=== PATIENT | female | born 2000 | race Caucasian/White ===

== ENCOUNTER 2024-03-22 14:20 | Inpatient (IN) | payer OTHER, SELFPAY ==
--- NOTE | ~2024-03-22 | XR_ITS ---
EXAMINATION: XR chest 1V portable 03/23/2024 08:38 INDICATION: Covid infection PROCEDURE: AP portable chest COMPARISON: No prior studies for comparison. FINDINGS: The lungs are clear. The cardiomediastinal silhouette is within normal limits. There are no pleural effusions. There is no pneumothorax suspected. IMPRESSION: 1: NO ACUTE CARDIOPULMONARY DISEASE. Reviewed, dictated and finalized at location B. [facility]
[2024-03-22 14:25] VITALS: BP 90/61; PULSE 124; RESP 24; TEMP 36.6; O2SAT 99
[2024-03-22 14:29] LABS: Glucose Point of Care > 500 mg/dl (65-105)
[2024-03-22 14:39] LABS: Fractional Inspired Oxygen 21 %; HCO3 VBG 15.1 mEq/l (24.0-30.0); pH VBG 7.361 (7.300-7.400)
[2024-03-22] MEDS: ONDANSETRON INJ 4 MG/2 ML VIAL IV PUSH (14:40)
[2024-03-22] MEDS: LACTATED RINGERS 1,000 ML 999 ML IV CONT ×3 (14:40→15:49)
[2024-03-22 14:41] LABS: PCO2 VBG 27.2 mmHg (42.0-48.0)
[2024-03-22 14:45] LABS: Basophils Absolute Auto 0.1 K/mm3 (0.0-0.1); Basophils Percent Auto 0.9 % (0.2-1.2); Eosinophils Absolute Auto 0.1 K/mm3 (0-0.3); Eosinophils Percent Auto 0.5 % (0-4.4); Hematocrit 43.5 % (37.0-47.0); Hemoglobin 14.4 g/dL (12.0-15.0); Immature Granulocyte Absolute 0.04 K/mm3 (0.00-0.031); Immature Granulocyte Percent A 0.4 % (0-0.5); Lymphocytes Absolute Auto 2.16 K/mm3 (0.9-3.2); Lymphocytes Percent Auto 20.5 % (18.3-44.2); Mean Corpuscular HGB Conc 33.1 g/dl (32-36); Mean Corpuscular Hemoglobin 29.5 pg (26-34); Mean Corpuscular Volume 89.1 fl (80-100); Mean Platelet Volume 11.5 fl (7.4-10.4); Monocytes Absolute Auto 0.3 K/mm3 (0.1-0.6); Monocytes Percent Auto 2.4 % (2.6-8.5); Neutrophils Percent Auto 75.3 % (45.5-73.1); Platelet Count Result 323 k/mm3 (150-375); Red Blood Count 4.88 M/mm3 (4.2-5.4); White Blood Count 10.5 K/mm3 (4.5-10.0)
--- NOTE | 2024-03-22 14:57 | ED_ITS ---
HPI - Recheck/Abnormal Lab/Rx General Chief Complaint: Recheck/Abnormal Lab/Rx Stated Complaint: high blood sugar, T1DM Time Seen by Provider: 03/22/24 14:30 History of Present Illness HPI narrative: 23-year-old female with a past medical history including type 1 insulin- dependent diabetes on insulin pump. She has had previous admissions for diabetic ketoacidosis in the past. She states she was otherwise in her normal state of health yesterday but woke up with profound nausea and vomiting, check her blood sugars never reading high above 600. She states she feels very similar to the last time she was in DKA over a year ago. She has been using her insulin pump and does not have any other did antidiabetic medications or insulin injections. She states that she has not been using her Dexcom a tractor sugars however. Denies any fever, chills, headache, vision changes, chest pain, shortness a breath, abdominal pain or symptoms. Her insulin pump is currently on in her left lower quadrant of the abdomen. Denies any trauma or other recent injuries, but does inform me that she got over pneumonia several weeks ago after a short course of antibiotics. Related Data Home Medications ?Medication ?Instructions ?Recorded ?Confirmed ?Last Taken ?Type insulin aspart U-100 100 unit/mL 1 sliding scale dose subcut 03/22/24 03/22/24 03/22/24 History subcutaneous cartridge (Novolog USEASDIRECTD PenFill U-100 Insulin aspart) Allergies Allergy/AdvReac Type Severity Reaction Status Date / Time amoxicillin Allergy Intermediate Hives Verified 03/22/24 14:42 clavulanic acid (From Allergy Intermediate Hives Verified 03/22/24 14:42 Augmentin) metoclopramide (From Reglan) Allergy Intermediate tremors Verified 03/22/24 14:42 Review of Systems 2 Review of Systems: As reviewed above in HPI [facility] Family History Family History (Updated 03/22/24 @ 18:27 by Geri Montalvo RN) Father Prostate carcinoma Social History Social History Smoking status: Never smoker Alcohol intake: current Drinks per week: 2 Substance use: never Substance use type: does not use Do You Feel Safe in your Home?: Yes Lack of Transportation: No Lack of Food: Never True Current Housing: I Do Not Have Housing Concerned About Future Housing: No Difficulty Paying Gas/Electric Bills: No Difficulty Paying for Meds: No Currently Unemployed: No Education: High School Diploma/GED Difficulty w/ Childcare or Family Care: No Spiritual care concerns: No Exam 2 Narrative: GENERAL: Ill-appearing, tachypneic, and having mild respiratory distress with deep breathing HEAD: [Normocephalic, atraumatic.] EYES: [PERRLA and EOMI.] ENT: Nares clear, no rhinorrhea or epistaxis. Mucous membranes dry with very tacky lips and tongue. NECK: Supple. CHEST: Clear to auscultation, mild distress with deep breathing and tachypnea noted, clear without any wheezing, rhonchi or rales. HEART: [Regular rate and rhythm]. No murmur heard. [Normal peripheral pulses.] ABDOMEN: [Soft, nondistended], [nontender], [No rigidity or guarding] EXTREMITIES: Normal range of motion. [No edema.] SKIN: Warm, dry, no rash. left lower quadrant insulin pump, removed at bedside, no bleeding or erythema, tenderness or any overlying skin changes this area. NEURO: [No focal deficits]. Alert and oriented [x3.] PSYCH: [Normal mood and affect.] Course Vital Signs Vital signs: Vital Signs Temperature 36.6 C 03/22/24 14:25 Pulse Rate 124 H 03/22/24 14:25 Respiratory Rate 24 H 03/22/24 14:25 Blood Pressure 90/61 L 03/22/24 14:25 Pulse Oximetry 99 03/22/24 14:25 Oxygen Delivery Room Air 03/22/24 14:25 Temperature 36.6 C 03/22/24 14:25 Pulse Rate 107 H 03/22/24 18:16 Respiratory Rate 24 H 03/22/24 17:22 Blood Pressure 116/62 03/22/24 18:16 Pulse Oximetry 100 03/22/24 17:19 Oxygen Delivery Room Air 03/22/24 14:25 MDM - Recheck/Abnormal Lab/Rx MDM Narrative Medical decision making narrative: 23-year-old female with a past medical history including type 1 insulin- dependent diabetes using insulin pump. She has had previous admissions to various hospitals for diabetic ketoacidosis most recently last year. She recently had pneumonia that was treated with outpatient antibiotics with recovery of her symptoms. Denies any respiratory complaints at this time but does have tachypnea and tachycardia here, does appear ill with deep breathing. Her blood sugar read high in triage. Concern presently is for recurrence of diabetic ketoacidosis versus HHS versus nonketotic hyperglycemia causing dehydration. Suspicion that her insulin pump could be the culprit as that is what caused her last DKA admission with malfunction. Patient has not been tracking her sugars with her Dexcom at home. The area of her insulin pump does not appear inflamed or infected, the insulin pump was removed while protocol for DKA was initiated. She was given 2 L of lactated Ringer's, Zofran for nausea, chest x-ray, EKG, urinalysis and laboratory studies were obtained including a VBG and beta hydroxybutyrate. COVID fluid RSV swabs also obtained. Initial blood pressure soft with a systolic and 90/61, pulse 124 tachypneic rate of 24. She is saturating well on room air and afebrile. Will re-evaluate and placed on continuous pulse oximetry and media monitor. She is given so far 2 L of LR and will be re-evaluated after this. Workup shows no significant leukocytosis at 10.5, normal hemoglobin, normal platelet count. VBG shows pCO2 of 27.2, bicarb 15.1 and a compensated pH is 7.36 indicative of an acute metabolic acidosis with compensated respiratory drive. Electrolyte panel shows a potassium 4.8, anion gap elevated acidosis with an anion gap of 22 and a bicarb of 13. Glucose of 535. Beta hydroxybutyrate elevated 7.51. Urinalysis with signs of urinary tract infection, COVID positive test. Patient was provided additional L of fluid and started on high-dose maintenance infusion with potassium supplementation while we initiate insulin therapy. She was given a 0.1 unit/kilogram dose of insulin infusion and started on Rocephin for the urinary tract infection. Patient was re-evaluated and felt improved and was no longer S tachycardic or tachypneic. Blood pressure also improved fluid resuscitation. Blood pressure 116/62, pulse 107. I informed the patient and the family at bedside the findings including the COVID test, urinary infection and her signs and her diagnosis of DKA and need for ICU admission. I spoke to the auto transmission specialist Dr. Prajapati over the phone and we went over patient's clinical exam, electrolyte panel, diagnosis of DKA and current treatment interventions and next steps. Patient was accepted the ICU at this time. I spoke to the mid-level provider covering hospitalist service Eda. After we went over patient's care and ICU admit she was accepted to the hospital at this time. Admit orders were placed as well as serial BMPs and glucose checks. Patient was admitted without further incident while here in the ED. Medical Records Attestation: I reviewed the patient's medical records. Lab Data Attestation: I reviewed the patient's lab results. 03/22/24 14:33 03/22/24 18:40 Labs: Lab Results 03/22/24 03/22/24 03/22/24 Range/Units 14:23 14:32 14:33 WBC 10.5 H (4.5-10.0) K/mm3 RBC 4.88 (4.2-5.4) M/mm3 Hgb 14.4 (12.0-15.0) g/dL Hct 43.5 (37.0-47.0) % MCV 89.1 (80-100) fl MCH 29.5 (26-34) pg MCHC 33.1 (32-36) g/dl RDW 14.0 (11.5-14.5) % Plt Count 323 (150-375) k/mm3 MPV 11.5 H (7.4-10.4) fl Immature Gran % (Auto) 0.4 (0-0.5) % Neut % (Auto) 75.3 H (45.5-73.1) % Lymph % (Auto) 20.5 (18.3-44.2) % [place] % (Auto) 2.4 L (2.6-8.5) % Eos % (Auto) 0.5 (0-4.4) % Baso % (Auto) 0.9 (0.2-1.2) % Lymph # (Auto) 2.16 (0.9-3.2) K/mm3 [place] # (Auto) 0.3 (0.1-0.6) K/mm3 Eos # (Auto) 0.1 (0-0.3) K/mm3 Baso # (Auto) 0.1 (0.0-0.1) K/mm3 Abs Immat Gran (auto) 0.04 H (0.00-0.031) K/mm3 Absolute Neuts (auto) 8.0 H (1.3-6.7) K/mm3 Absolute Nucleated RBC 0.000 (0.0-0.012) K/mm3 Nucleated RBC % 0.0 (0.0-0.2) % Sodium 136 L (137-145) mmol/L Potassium 4.8 (3.4-5.0) mmol/L Chloride 102 (98-107) mmol/L Carbon Dioxide 13 L (22-30) mmol/L Anion Gap 21 H (4-12) mmol/L BUN 20 H (7-17) mg/dL Creatinine 0.69 L (0.7-1.0) mg/dL Estim Creat Clear Calc 96 ml/min Estimated GFR > 60 (59 - ) Glucose 565 H* (65-110) mg/dL POC Capillary Glucose > 500 H* (65-105) mg/dl Hemoglobin A1c 11.5 H (<5.7) % Calcium 9.7 (8.4-10.2) mg/dL Phosphorus 3.5 (2.5-4.5) mg/dL Magnesium 2.1 (1.6-2.3) mg/dL Total Bilirubin 1.5 H (0.2-1.3) mg/dL AST 30 (14-36) U/L ALT 32 (6-35) U/L Alkaline Phosphatase 129 H (38-126) U/L Total Protein 8.0 (6.3-8.2) g/dL Albumin 4.7 (3.5-5.1) g/dL Beta-Hydroxybutyrate/Acetoacetate 7.51 H (0.02-0.27) mmol/L Urine Color (Yellow) Urine Appearance (Clear) Urine pH (5.0-9.0) Ur Specific [place] (1.001-1.035) Urine Protein (Negative) mg/dL Urine Glucose (UA) (Negative) mg/dL Urine Ketones (Negative) mg/dL Ur Blood (Man) (Negative) Urine Nitrate (Negative) Urine Bilirubin (Negative) Urine Urobilinogen (<2.0) mg/dL Leukocyte Esterase Rfl (Negative) DEV/UL Urine RBC (0-2) /hpf Urine WBC (0-3) /hpf Ur Squamous Epith Cells (Few) /hpf Urine Bacteria /hpf Urine Casts POC Urine HCG, Qual (Negative) Influenza A (RT-PCR) (Negative) Influenza B (RT-PCR) (Negative) RSV (RT-PCR) (Negative) SARS-CoV-2 RNA (RT-PCR) (Negative) 03/22/24 03/22/24 03/22/24 Range/Units 15:12 15:55 15:58 WBC (4.5-10.0) K/mm3 RBC (4.2-5.4) M/mm3 Hgb (12.0-15.0) g/dL Hct (37.0-47.0) % MCV (80-100) fl MCH (26-34) pg MCHC (32-36) g/dl RDW (11.5-14.5) % Plt Count (150-375) k/mm3 MPV (7.4-10.4) fl Immature Gran % (Auto) (0-0.5) % Neut % (Auto) (45.5-73.1) % Lymph % (Auto) (18.3-44.2) % [place] % (Auto) (2.6-8.5) % Eos % (Auto) (0-4.4) % Baso % (Auto) (0.2-1.2) % Lymph # (Auto) (0.9-3.2) K/mm3 [place] # (Auto) (0.1-0.6) K/mm3 Eos # (Auto) (0-0.3) K/mm3 Baso # (Auto) (0.0-0.1) K/mm3 Abs Immat Gran (auto) (0.00-0.031) K/mm3 Absolute Neuts (auto) (1.3-6.7) K/mm3 Absolute Nucleated RBC (0.0-0.012) K/mm3 Nucleated RBC % (0.0-0.2) % Sodium (137-145) mmol/L Potassium (3.4-5.0) mmol/L Chloride (98-107) mmol/L Carbon Dioxide (22-30) mmol/L Anion Gap (4-12) mmol/L BUN (7-17) mg/dL Creatinine (0.7-1.0) mg/dL Estim Creat Clear Calc ml/min Estimated GFR (59 - ) Glucose (65-110) mg/dL POC Capillary Glucose (65-105) mg/dl Hemoglobin A1c (<5.7) % Calcium (8.4-10.2) mg/dL Phosphorus (2.5-4.5) mg/dL Magnesium (1.6-2.3) mg/dL Total Bilirubin (0.2-1.3) mg/dL AST (14-36) U/L ALT (6-35) U/L Alkaline Phosphatase (38-126) U/L Total Protein (6.3-8.2) g/dL Albumin (3.5-5.1) g/dL Beta-Hydroxybutyrate/Acetoacetate (0.02-0.27) mmol/L Urine Color Yellow (Yellow) Urine Appearance Clear (Clear) Urine pH 5.5 (5.0-9.0) Ur Specific [place] 1.036 H (1.001-1.035) Urine Protein Negative (Negative) mg/dL Urine Glucose (UA) 3+ H (Negative) mg/dL Urine Ketones 4+ H (Negative) mg/dL Ur Blood (Man) Negative (Negative) Urine Nitrate Negative (Negative) Urine Bilirubin Negative (Negative) Urine Urobilinogen 0.2 (<2.0) mg/dL Leukocyte Esterase Rfl Trace H (Negative) DEV/UL Urine RBC 0-2 (0-2) /hpf Urine WBC 21-50 H (0-3) /hpf Ur Squamous Epith Cells Occasional (Few) /hpf Urine Bacteria Rare /hpf Urine Casts 0-2 POC Urine HCG, Qual Negative (Negative) Influenza A (RT-PCR) Negative (Negative) Influenza B (RT-PCR) Negative (Negative) RSV (RT-PCR) Negative (Negative) SARS-CoV-2 RNA (RT-PCR) Positive A (Negative) 03/22/24 03/22/24 Range/Units 16:35 16:44 WBC (4.5-10.0) K/mm3 RBC (4.2-5.4) M/mm3 Hgb (12.0-15.0) g/dL Hct (37.0-47.0) % MCV (80-100) fl MCH (26-34) pg MCHC (32-36) g/dl RDW (11.5-14.5) % Plt Count (150-375) k/mm3 MPV (7.4-10.4) fl Immature Gran % (Auto) (0-0.5) % Neut % (Auto) (45.5-73.1) % Lymph % (Auto) (18.3-44.2) % [place] % (Auto) (2.6-8.5) % Eos % (Auto) (0-4.4) % Baso % (Auto) (0.2-1.2) % Lymph # (Auto) (0.9-3.2) K/mm3 [place] # (Auto) (0.1-0.6) K/mm3 Eos # (Auto) (0-0.3) K/mm3 Baso # (Auto) (0.0-0.1) K/mm3 Abs Immat Gran (auto) (0.00-0.031) K/mm3 Absolute Neuts (auto) (1.3-6.7) K/mm3 Absolute Nucleated RBC (0.0-0.012) K/mm3 Nucleated RBC % (0.0-0.2) % Sodium 137 (137-145) mmol/L Potassium 5.1 H (3.4-5.0) mmol/L Chloride 104 (98-107) mmol/L Carbon Dioxide 16 L (22-30) mmol/L Anion Gap 17 H (4-12) mmol/L BUN 19 H (7-17) mg/dL Creatinine 0.61 L (0.7-1.0) mg/dL Estim Creat Clear Calc 108 ml/min Estimated GFR > 60 (59 - ) Glucose 494 H (65-110) mg/dL POC Capillary Glucose > 500 H* (65-105) mg/dl Hemoglobin A1c (<5.7) % Calcium 8.9 (8.4-10.2) mg/dL Phosphorus (2.5-4.5) mg/dL Magnesium (1.6-2.3) mg/dL Total Bilirubin (0.2-1.3) mg/dL AST (14-36) U/L ALT (6-35) U/L Alkaline Phosphatase (38-126) U/L Total Protein (6.3-8.2) g/dL Albumin (3.5-5.1) g/dL Beta-Hydroxybutyrate/Acetoacetate (0.02-0.27) mmol/L Urine Color (Yellow) Urine Appearance (Clear) Urine pH (5.0-9.0) Ur Specific [place] (1.001-1.035) Urine Protein (Negative) mg/dL Urine Glucose (UA) (Negative) mg/dL Urine Ketones (Negative) mg/dL Ur Blood (Man) (Negative) Urine Nitrate (Negative) Urine Bilirubin (Negative) Urine Urobilinogen (<2.0) mg/dL Leukocyte Esterase Rfl (Negative) DEV/UL Urine RBC (0-2) /hpf Urine WBC (0-3) /hpf Ur Squamous Epith Cells (Few) /hpf Urine Bacteria /hpf Urine Casts POC Urine HCG, Qual (Negative) Influenza A (RT-PCR) (Negative) Influenza B (RT-PCR) (Negative) RSV (RT-PCR) (Negative) SARS-CoV-2 RNA (RT-PCR) (Negative) ABG Data ABG results: 03/22/24 14:35 VBG pH 7.361 VBG pCO2 27.2 L* VBG pO2 88.0 H VBG HCO3 15.1 L O2 Delivery Device Not Reportable O2 Liters/Min Not Reportable FiO2 21 Attestation: I personally reviewed and interpreted this ABG as follows: Interpretation: Compensated acute metabolic acidosis with appropriate respiratory alkalosis Critical Care Time Critical Care Time Critical Care Time: Yes Total Critical Care Time: 75 Discharge Plan Discharge Clinical Impression: DKA (diabetic ketoacidosis), UTI (urinary tract infection), COVID-19, Acute dehydration, History of diabetes mellitus, type I Patient Disposition: Still a Patient Condition: Serious Time of Disposition: 16:50
[2024-03-22 15:11] LABS: Alanine Aminotransferase 32 U/L (6-35); Albumin Level 4.7 g/dL (3.5-5.1); Alkaline Phosphatase 129 U/L (38-126); Anion Gap 21 mmol/L (4-12); Aspartate Amino Transferase 30 U/L (14-36); Bilirubin,Total 1.5 mg/dL (0.2-1.3); Blood Urea Nitrogen 20 mg/dL (7-17); Calcium 9.7 mg/dL (8.4-10.2); Carbon Dioxide 13 mmol/L (22-30); Chloride 102 mmol/L (98-107); Estimated CRCL calculation 96 ml/min; Estimated Glomerular Filt Rate > 60; Glucose 565 mg/dL (65-110); Magnesium 2.1 mg/dL (1.6-2.3); Phosphorus 3.5 mg/dL (2.5-4.5); Potassium 4.8 mmol/L (3.4-5.0); Sodium 136 mmol/L (137-145)
[2024-03-22 15:16] LABS: Beta-Hydroxybutyrate/Acetoacetate 7.51 mmol/L (0.02-0.27)
[2024-03-22 15:55] LABS: Influenza A QL RT-PCR Negative (Negative); Influenza B QL RT-PCR Negative (Negative); RSV RNA, RT-PCR Negative (Negative); SARS-CoV-2 RNA PCR Positive (Negative)
[2024-03-22 15:59] LABS: BEDSIDEPREGUCG Negative (Negative)
[2024-03-22 16:01] LABS: Hemoglobin A1C 11.5 % (<5.7)
[2024-03-22 16:09] LABS: Add Urine Microscopic? YES; Appearance Urine Clear (Clear); Bacteria Urine Rare /hpf; Bilirubin Urine Negative (Negative); Blood Urine Negative (Negative); Color Urine Yellow (Yellow); Glucose Urine UA 3+ mg/dL (Negative); Ketones Urine 4+ mg/dL (Negative); Leukocyte Esterase Ur Trace LEU/UL (Negative); Nitrate Urine Negative (Negative); Non Pathogenic Casts 0-2; Protein Urine Negative (Negative); RBC Urine 0-2 /hpf (0-2); Specific Grav Ur 1.036 (1.001-1.035); Squamous Epithelial Cell Urine Occasional /hpf (Few); Urobilinogen Urine 0.2 mg/dL (<2.0); WBC Urine 21-50 /hpf (0-3); pH Urine 5.5 (5.0-9.0)
[2024-03-22] MEDS: KCL 20 MEQ/LR 1,000 ML 150 ML IV CONT (16:40)
[2024-03-22] MEDS: INSULIN HUMAN REGULAR (*BKC) 100 UNITS in SODIUM CHLORIDE 0.9% IV 99 ML 5.5 UNITS IV CONT (16:41)
[2024-03-22 16:47] LABS: Glucose Point of Care > 500 mg/dl (65-105)
[2024-03-22 17:02] LABS: Anion Gap 17 mmol/L (4-12); Blood Urea Nitrogen 19 mg/dL (7-17); Calcium 8.9 mg/dL (8.4-10.2); Carbon Dioxide 16 mmol/L (22-30); Chloride 104 mmol/L (98-107); Estimated CRCL calculation 108 ml/min; Estimated Glomerular Filt Rate > 60; Glucose 494 mg/dL (65-110); Potassium 5.1 mmol/L (3.4-5.0); Sodium 137 mmol/L (137-145)
--- NOTE | 2024-03-22 17:15 | P.HP_ITS ---
H&P: HPI History of Present Illness Date/Time: 03/22/24 17:15 Chief Complaint: Hyperglycemia on insulin pump Narrative: 23-year-old female with type 1 diabetes on insulin pump presents the hospital with hyperglycemia. woke up with profound nausea and vomiting, check her blood sugars never reading high above 600. She states she feels very similar to the last time she was in DKA over a year ago. Patient uses her insulin pump however does not have her Dexcom, due to provider and insurance issues. Patient denies respiratory issues. Leukocytosis at 10.5, hyperkalemia at 5.1, carbon dioxide of 13, anion gap of 21, glucose on admission was 565, hemoglobin A1c is 11.5, beta hydroxy a is 7.51, UA positive 3+ glucose, 4+ ketones, trace leukocyte esterase, negative for nitrates, WBC high. Covid test positive. Patient being admitted for DKA and COVID. Review of Systems Review of Systems: 12 systems were reviewed and are negativ e except for as per HPI. [facility] Past Medical History Medical History (Updated 03/22/24 @ 23:23 by Eda Khalil APRN) Type 1 diabetes Family History Family History (Updated 03/22/24 @ 23:24 by Eda Khalil APRN) Father Prostate carcinoma Social History Social History Smoking status: Never smoker Alcohol intake: current Drinks per week: 2 Substance use: never Substance use type: does not use Do You Feel Safe in your Home?: Yes Lack of Transportation: No Lack of Food: Never True Current Housing: I Do Not Have Housing Concerned About Future Housing: No Difficulty Paying Gas/Electric Bills: No Difficulty Paying for Meds: No Currently Unemployed: No Education: High School Diploma/GED Difficulty w/ Childcare or Family Care: No Spiritual care concerns: No Meds Home Medications and Allergies Home Medications ?Medication ?Instructions ?Recorded ?Confirmed ?Type insulin aspart U-100 100 unit/mL 1 sliding scale dose subcut 03/22/24 03/22/24 History subcutaneous cartridge (Novolog USEASDIRECTD PenFill U-100 Insulin aspart) Allergies Allergy/AdvReac Type Severity Reaction Status Date / Time amoxicillin Allergy Intermediate Hives Verified 03/22/24 14:42 clavulanic acid (From Allergy Intermediate Hives Verified 03/22/24 14:42 Augmentin) metoclopramide (From Reglan) Allergy Intermediate tremors Verified 03/22/24 14:42 Vital Signs Vital Signs - 24 hr 03/22/24 14:25 Temperature 97.8 F Pulse Rate 124 H Respiratory Rate 24 H Blood Pressure 90/61 L Pulse Oximetry 99 Oxygen Delivery Room Air Exam Narrative: General: well appearing, appears stated age. HEENT: normocephalic, atraumatic. Mucous membranes dry. EOMI, PERRLA, bilateral sclera anicteric, no conjunctival injection. Neck supple without JVD, lymphadenopathy, or bruit. Respiratory: clear to ascultation bilaterally. No rales/rhonic/wheezes. Cardiovascular: Regular rate and rhythm, normal S1-S2 upon ascultation. No murmurs, rubs, or clicks. PMI is nondisplaced, capillary refill less than 3 second. Abdomen: Soft, round, no pulsatile masses, nondistended and nontender. No rebound, no guarding. No CVA tenderness, no hepatosplenomegaly. Bowel sounds present to all four quadrants. No high pitch or tinkling sounds, resonant to percussion. Extremities: No cyanosis, clubbing, or edema present. Pulses are palpable 2/2. Active ROM to all four extremities. Neuro: Alert and orientated x 4. PERRLA. Cranial nerves 2-12 intact without focal deficit. Skin: Warm, dry, and intact, without rash, erythema, or lesion. Psych: pleasant, cooperative, normal speech, normal affect, no hallucinations, no dysarthia H&P: Results Labs Labs: Short CBC 03/22/24 Range/Units 14:33 WBC 10.5 H (4.5-10.0) K/mm3 Hgb 14.4 (12.0-15.0) g/dL Hct 43.5 (37.0-47.0) % Plt Count 323 (150-375) k/mm3 BMP 03/22/24 03/22/24 14:33 16:44 Sodium 136 L 137 Potassium 4.8 5.1 H Chloride 102 104 Carbon Dioxide 13 L 16 L BUN 20 H 19 H Creatinine 0.69 L 0.61 L Glucose 565 H* 494 H Calcium 9.7 8.9 Liver Function 03/22/24 Range/Units 14:33 Total Bilirubin 1.5 H (0.2-1.3) mg/dL AST 30 (14-36) U/L ALT 32 (6-35) U/L Alkaline Phosphatase 129 H (38-126) U/L Albumin 4.7 (3.5-5.1) g/dL Urine 03/22/24 Range/Units 15:55 Urine Color Yellow (Yellow) Urine Appearance Clear (Clear) Urine pH 5.5 (5.0-9.0) Ur Specific [place] 1.036 H (1.001-1.035) Urine Protein Negative (Negative) mg/dL Urine Glucose (UA) 3+ H (Negative) mg/dL Assessment and Plan Assessment and plan (1) DKA (diabetic ketoacidosis): Code(s): E11.10 - Type 2 diabetes mellitus with ketoacidosis without coma Status: Acute Assessment and Plan: Admit to ICU Patient received 3 L of LR in the emergency room NPO BMP Q 4 Insulin drip per protocol with D5 once blood sugars below 250 Transition to Lantus and short-acting insulin once gap closed Maintain a potassium between 4.0 and 5.0, replete as needed (2) Type 1 diabetes: Code(s): E10.9 - Type 1 diabetes mellitus without complications Status: Acute Assessment and Plan: Uncontrolled Hemoglobin A1c 11.5 Pump removed in the ED started on IV insulin Patient states that she does not have a Dexcom at this per time due to insurance issues and changing yardage control operator forming Case management writing manager consulted for resources (3) COVID: Code(s): U07.1 - COVID-19 Status: Acute Assessment and Plan: Asymptomatic Not starting dexamethasone at this time due to DKA (4) UTI (urinary tract infection): Code(s): N39.0 - Urinary tract infection, site not specified Status: Acute Assessment and Plan: Rocephin Culture and sensitivity pending Quality VTE Prophylaxis VTE prophylaxis: mechanical ordered and pharmacologic ordered Hospitalist MIPS Advance Care Plan I have confirmed that the patient's Advanced Care Plan is present, code status is documented, or surrogate decision maker is listed in patient medical record.: Yes Medication Reconciliation I have utilized all available resources to obtain, update and review the patients current medications (includes all prescriptions, OTC, herbals, cannabis, and nutritional supplements).: Yes
[2024-03-22] MEDS: cefTRIAXone 2 GM/NS 100 ML 2 GM/100 ML BAG IVPB (17:18)
[2024-03-22 17:19] VITALS: BP 116/62; PULSE 107; RESP 18; O2SAT 100
[2024-03-22 17:22] VITALS: RESP 24
[2024-03-22] MEDS: SODIUM CHLORIDE 0.9% IV 1,000 ML 150 ML IV CONT (17:55)
[2024-03-22 17:59] LABS: Glucose Point of Care 396 mg/dl (65-105)
[2024-03-22 18:16] VITALS: BP 116/62; PULSE 107; BMI 20.5
--- NOTE | 2024-03-22 18:26 | ADMGEN ---
This patient, Jessica Espinosa, was admitted to Intensive Care Unit-11. Patient/family oriented to hospital policies and general routines including ID bracelet, bed and alarms, visiting hours, pain management, procedures, bathroom and other care routines, personal items, smoking policy, room service/diet, and visiting hours. Information on how to activate the Rapid Response Team has been discussed. Patient/Family are encouraged to report perceived risks to care and to ask questions if they do not understand what they are told or what they should do.
[2024-03-22 19:03] LABS: Potassium 3.5 mmol/L (3.4-5.0)
[2024-03-22] MEDS: INSULIN HUMAN REGULAR (*BKC) 100 UNITS in SODIUM CHLORIDE 0.9% IV 99 ML 7 UNITS IV CONT (19:07)
[2024-03-22] MEDS: SODIUM CHLORIDE 0.9% IV 1,000 ML 999 ML IV CONT ×3 (19:09→22:21)
[2024-03-22 19:29] LABS: Glucose Point of Care 233 mg/dl (65-105)
[2024-03-22 20:00] VITALS: BP 86/48; PULSE 110; RESP 12; TEMP 37.2; O2SAT 99
[2024-03-22] MEDS: KCL 20 MEQ/D5/0.45% SOD CHL 1,000 ML 150 ML IV CONT (20:02)
[2024-03-22 21:05] LABS: Glucose Point of Care 150 mg/dl (65-105)
[2024-03-22 21:05] LABS: Glucose Point of Care 139 mg/dl (65-105)
[2024-03-22 21:24] LABS: Potassium 4.1 mmol/L (3.4-5.0)
[2024-03-22 22:00] VITALS: BP 91/45; PULSE 97; RESP 12; O2SAT 98
[2024-03-22 22:07] LABS: Glucose Point of Care 110 mg/dl (65-105)
[2024-03-22 23:17] LABS: Glucose Point of Care 88 mg/dl (65-105)
[2024-03-22 23:46] LABS: Anion Gap 4 mmol/L (4-12); Blood Urea Nitrogen 15 mg/dL (7-17); Calcium 7.3 mg/dL (8.4-10.2); Carbon Dioxide 19 mmol/L (22-30); Chloride 116 mmol/L (98-107); Estimated CRCL calculation 120 ml/min; Estimated Glomerular Filt Rate > 60; Glucose 93 mg/dL (65-110); Potassium 4.2 mmol/L (3.4-5.0); Sodium 139 mmol/L (137-145)
[2024-03-23] VITALS (10 sets, daily range): BP systolic 81–122; BP diastolic 57–80; PULSE 79–104; RESP 11–20; TEMP 35.9–36.7; O2SAT 97–100
[2024-03-23] MEDS: CALCIUM GLUC 2,000 MG/NS 100ML 2,000 MG/100 ML BAG 100 MG IVPB (00:08)
[2024-03-23] MEDS: INSULIN GLARGINE (*BKC) 100 UNITS/ML 20 UNITS SUB-Q ×2 (00:25→21:08)
[2024-03-23 00:34] LABS: Glucose Point of Care 72 mg/dl (65-105)
[2024-03-23 01:33] LABS: Glucose Point of Care 171 mg/dl (65-105)
[2024-03-23 03:40] LABS: Basophils Absolute Auto 0.1 K/mm3 (0.0-0.1); Basophils Percent Auto 0.8 % (0.2-1.2); Eosinophils Absolute Auto 0.1 K/mm3 (0-0.3); Eosinophils Percent Auto 1.3 % (0-4.4); Hematocrit 33.2 % (37.0-47.0); Hemoglobin 10.9 g/dL (12.0-15.0); Immature Granulocyte Absolute 0.03 K/mm3 (0.00-0.031); Immature Granulocyte Percent A 0.4 % (0-0.5); Lymphocytes Percent Auto 31.8 % (18.3-44.2); Mean Corpuscular HGB Conc 32.8 g/dl (32-36); Mean Corpuscular Hemoglobin 29.9 pg (26-34); Mean Corpuscular Volume 91.2 fl (80-100); Monocytes Absolute Auto 0.5 K/mm3 (0.1-0.6); Monocytes Percent Auto 6.6 % (2.6-8.5); Neutrophils Absolute Auto 4.5 K/mm3 (1.3-6.7); Neutrophils Percent Auto 59.1 % (45.5-73.1); Platelet Count Result 222 k/mm3 (150-375); Red Blood Count 3.64 M/mm3 (4.2-5.4); Red Cell Distribution Width 14.1 % (11.5-14.5); White Blood Count 7.5 K/mm3 (4.5-10.0)
[2024-03-23 03:54] LABS: Anion Gap 3 mmol/L (4-12); Blood Urea Nitrogen 15 mg/dL (7-17); Calcium 8.5 mg/dL (8.4-10.2); Carbon Dioxide 21 mmol/L (22-30); Chloride 112 mmol/L (98-107); Estimated CRCL calculation 99 ml/min; Estimated Glomerular Filt Rate > 60; Glucose 241 mg/dL (65-110); Magnesium 1.6 mg/dL (1.6-2.3); Phosphorus 3.8 mg/dL (2.5-4.5); Potassium 4.3 mmol/L (3.4-5.0); Sodium 136 mmol/L (137-145)
[2024-03-23 04:48] LABS: Glucose Point of Care 249 mg/dl (65-105)
[2024-03-23 08:03] LABS: Anion Gap 3 mmol/L (4-12); Blood Urea Nitrogen 14 mg/dL (7-17); Calcium 8.4 mg/dL (8.4-10.2); Carbon Dioxide 23 mmol/L (22-30); Chloride 111 mmol/L (98-107); Estimated CRCL calculation 107 ml/min; Estimated Glomerular Filt Rate > 60; Glucose 182 mg/dL (65-110); Potassium 4.1 mmol/L (3.4-5.0); Sodium 137 mmol/L (137-145)
[2024-03-23] MEDS: INSULIN ASPART (*BKC) 100 UNITS/ML SUB-Q ×4 (08:31→16:58)
[2024-03-23] MEDS: SULFAMETHOXAZOLE/TRIMETHOPRIM 800/160 MG DS TABLET 1 TAB PO ×2 (08:31→21:08)
[2024-03-23 08:37] LABS: Glucose Point of Care 199 mg/dl (65-105)
--- NOTE | 2024-03-23 09:43 | P.CONIN_ITS ---
Assessment and Plan Assessment and plan (1) DKA (diabetic ketoacidosis): Code(s): E11.10 - Type 2 diabetes mellitus with ketoacidosis without coma Status: Acute Assessment and Plan: Patient presented with DKA and her insulin pump was discontinued. Pt was given IVF bolus and started on infusion Insulin infusion started and Q1H glucose monitoring was done Serial labs were done Patient's anion gap has now closed and patient will be transition to subcutaneous insulin. 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 No treatment indicated Check chest x-ray Isolation (3) UTI (urinary tract infection): Code(s): N39.0 - Urinary tract infection, site not specified Status: Acute Assessment and Plan: He was suggestive of UTI. Patient asymptomatic. WBC normal. Afebrile She received a dose of Rocephin in the ED Blood cultures urine cultures ordered IV fluid Will start Bactrim p.o. 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 Patient has insulin pump but did not notice any problem with her insulin pump. Yesterday started having abdominal pain which was mild diffuse with no radiation. It was associated with nausea and vomiting but no blood in the vomitus. She had no diarrhea or constipation. She denied any fever cough dysuria hematuria hematochezia melena. She states that she had similar symptoms when she was admitted with DKA few years ago. She also has been having runny nose for last 2 days. She states she was diagnosed with pneumonia and urgent care 3 weeks ago and took a course of Z-Gabino and felt better. At that time she was tested for COVID and was negative. She denies any sick contact. She is [id number] mother.. She denies any cough shortness of breath fever or chest pain. All other systems were reviewed and were negative In the ER, workup showed, Leukocytosis at 10.5, hyperkalemia at 5.1, carbon dioxide of 13, anion gap of 21, glucose on admission was 565, hemoglobin A1c is 11.5, beta hydroxy a is 7.51, UA positive 3+ glucose, 4+ ketones, trace leukocyte esterase, negative for nitrates, WBC high Patient was found to be hyperglycemic and in DKA. Patient also had abnormal UA suggestive of UTI. Patient also tested positive for COVID Review of Systems 2 Review of Systems: All systems reviewed & are unremarkable except as noted in HPI and below (Insert) [facility] Past Medical History Medical History Type 1 diabetes Family History Family History Father Prostate carcinoma Social History Social History Smoking status: Never smoker Alcohol intake: current Drinks per week: 2 Substance use: never Substance use type: does not use Do You Feel Safe in your Home?: Yes Lack of Transportation: No Lack of Food: Never True Current Housing: I Do Not Have Housing Concerned About Future Housing: No Difficulty Paying Gas/Electric Bills: No Difficulty Paying for Meds: No Currently Unemployed: No Education: High School Diploma/GED Difficulty w/ Childcare or Family Care: No Spiritual care concerns: No Meds Home Medications and Allergies Home Medications ?Medication ?Instructions ?Recorded ?Confirmed ?Type insulin aspart U-100 100 unit/mL 1 sliding scale dose subcut 03/22/24 03/22/24 History subcutaneous cartridge (Novolog USEASDIRECTD PenFill U-100 Insulin aspart) Allergies Allergy/AdvReac Type Severity Reaction Status Date / Time amoxicillin Allergy Intermediate Hives Verified 03/22/24 14:42 clavulanic acid (From Allergy Intermediate Hives Verified 03/22/24 14:42 Augmentin) metoclopramide (From Reglan) Allergy Intermediate tremors Verified 03/22/24 14:42 Vital Signs Vital Signs - 24 hr 03/22/24 14:25 03/22/24 17:19 03/22/24 17:22 Temperature 36.6 C Pulse Rate 124 H 107 H Respiratory Rate 24 H 18 24 H Blood Pressure 90/61 L 116/62 Pulse Oximetry 99 100 Oxygen Delivery Room Air 03/22/24 18:16 03/22/24 20:00 03/22/24 20:00 Temperature 37.2 C Pulse Rate 107 H 110 H 110 H Respiratory Rate 12 Blood Pressure 116/62 86/48 L Pulse Oximetry 99 Oxygen Delivery 03/22/24 22:00 03/22/24 22:00 03/23/24 00:00 Temperature Pulse Rate 97 97 97 Respiratory Rate 12 Blood Pressure 91/45 L Pulse Oximetry 98 Oxygen Delivery 03/23/24 00:00 03/23/24 02:00 03/23/24 02:00 Temperature 36.6 C Pulse Rate 97 89 89 Respiratory Rate 11 L 13 Blood Pressure 85/58 L 81/57 L Pulse Oximetry 100 97 Oxygen Delivery 03/23/24 04:00 03/23/24 04:00 03/23/24 06:00 Temperature 36.7 C Pulse Rate 82 82 79 Respiratory Rate 12 Blood Pressure 94/58 L Pulse Oximetry 97 Oxygen Delivery 03/23/24 06:00 03/23/24 08:00 03/23/24 08:00 Temperature 36.6 C Pulse Rate 79 88 88 Respiratory Rate 11 L 16 Blood Pressure 94/59 L 98/67 L Pulse Oximetry 97 97 Oxygen Delivery 03/23/24 08:00 Temperature Pulse Rate Respiratory Rate Blood Pressure Pulse Oximetry Oxygen Delivery Room Air Results Labs 03/23/24 03:34 03/23/24 07:32 Labs: Short CBC 03/22/24 03/23/24 Range/Units 14:33 03:34 WBC 10.5 H 7.5 (4.5-10.0) K/mm3 Hgb 14.4 10.9 L D (12.0-15.0) g/dL Hct 43.5 33.2 L (37.0-47.0) % Plt Count 323 222 (150-375) k/mm3 BMP 03/22/24 03/22/24 03/22/24 14:33 16:44 18:40 Sodium 136 L 137 Potassium 4.8 5.1 H 3.5 Chloride 102 104 Carbon Dioxide 13 L 16 L BUN 20 H 19 H Creatinine 0.69 L 0.61 L Glucose 565 H* 494 H Calcium 9.7 8.9 03/22/24 03/22/24 03/23/24 20:58 23:26 03:34 Sodium 139 136 L Potassium 4.1 4.2 4.3 Chloride 116 H 112 H Carbon Dioxide 19 L 21 L BUN 15 15 Creatinine 0.54 L 0.67 L Glucose 93 241 H Calcium 7.3 L 8.5 03/23/24 07:32 Sodium 137 Potassium 4.1 Chloride 111 H Carbon Dioxide 23 BUN 14 Creatinine 0.60 L Glucose 182 H Calcium 8.4 Liver Function 03/22/24 Range/Units 14:33 Total Bilirubin 1.5 H (0.2-1.3) mg/dL AST 30 (14-36) U/L ALT 32 (6-35) U/L Alkaline Phosphatase 129 H (38-126) U/L Albumin 4.7 (3.5-5.1) g/dL Urine 03/22/24 Range/Units 15:55 Urine Color Yellow (Yellow) Urine Appearance Clear (Clear) Urine pH 5.5 (5.0-9.0) Ur Specific [place] 1.036 H (1.001-1.035) Urine Protein Negative (Negative) mg/dL Urine Glucose (UA) 3+ H (Negative) mg/dL Quality VTE Prophylaxis VTE prophylaxis: mechanical ordered Hospitalist MIPS Advance Care Plan I have confirmed that the patient's Advanced Care Plan is present, code status is documented, or surrogate decision maker is listed in patient medical record.: Yes Medication Reconciliation I have utilized all available resources to obtain, update and review the patients current medications (includes all prescriptions, OTC, herbals, cannabis, and nutritional supplements).: Yes
--- NOTE | 2024-03-23 10:08 | PC.NURSE ---
This patient, Jessica Espinosa, was transferred to [[id number]] on 03/23/24 at 1008. Personal belongings sent with patient. Report given to [Daria ARAUZ]. Appropriate documentation sent with patient.
[2024-03-23 11:26] LABS: Anion Gap 3 mmol/L (4-12); Blood Urea Nitrogen 15 mg/dL (7-17); Calcium 8.3 mg/dL (8.4-10.2); Carbon Dioxide 23 mmol/L (22-30); Chloride 109 mmol/L (98-107); Estimated CRCL calculation 94 ml/min; Estimated Glomerular Filt Rate > 60; Glucose 245 mg/dL (65-110); Potassium 3.9 mmol/L (3.4-5.0); Sodium 135 mmol/L (137-145)
[2024-03-23 12:01] LABS: Glucose Point of Care 277 mg/dl (65-105)
[2024-03-23 16:46] LABS: Glucose Point of Care 171 mg/dl (65-105)
[2024-03-23 21:05] LABS: Glucose Point of Care 279 mg/dl (65-105)
[2024-03-24 04:55] VITALS: BP 108/69; PULSE 79; RESP 18; TEMP 36.4; O2SAT 99
[2024-03-24 06:39] LABS: Hematocrit 35.1 % (37.0-47.0); Hemoglobin 11.6 g/dL (12.0-15.0); Mean Corpuscular Hemoglobin 29.7 pg (26-34); Mean Platelet Volume 11.3 fl (7.4-10.4); Platelet Count Result 185 k/mm3 (150-375); Red Cell Distribution Width 13.8 % (11.5-14.5)
[2024-03-24 06:49] LABS: Alanine Aminotransferase 26 U/L (6-35); Albumin Level 3.2 g/dL (3.5-5.1); Alkaline Phosphatase 80 U/L (38-126); Anion Gap 3 mmol/L (4-12); Aspartate Amino Transferase 44 U/L (14-36); Bilirubin,Total 0.8 mg/dL (0.2-1.3); Blood Urea Nitrogen 13 mg/dL (7-17); Calcium 8.1 mg/dL (8.4-10.2); Carbon Dioxide 26 mmol/L (22-30); Chloride 102 mmol/L (98-107); Estimated CRCL calculation 118 ml/min; Estimated Glomerular Filt Rate > 60; Glucose 286 mg/dL (65-110); Magnesium 1.7 mg/dL (1.6-2.3); Potassium 3.6 mmol/L (3.4-5.0); Sodium 131 mmol/L (137-145)
[2024-03-24 08:08] LABS: Glucose Point of Care 268 mg/dl (65-105)
[2024-03-24 08:44] VITALS: BP 109/71; PULSE 99; RESP 17; TEMP 36.2; O2SAT 99
[2024-03-24] MEDS: SULFAMETHOXAZOLE/TRIMETHOPRIM 800/160 MG DS TABLET 1 TAB PO (09:28)
[2024-03-24] MEDS: ENOXAPARIN 40 MG/0.4 ML SYRINGE SUB-Q (09:28)
[2024-03-24] MEDS: INSULIN ASPART (*BKC) 100 UNITS/ML SUB-Q ×4 (09:29→12:44)
[2024-03-24 11:26] LABS: Glucose Point of Care 306 mg/dl (65-105)
--- NOTE | 2024-03-24 12:24 | P.DS_ITS ---
DS: Admitting Diagnosis Discharge Date 03/24/2024 Admitting Diagnosis DKA DS: Discharge Diagnosis Discharge Diagnosis (1) DKA (diabetic ketoacidosis): Code(s): E11.10 - Type 2 diabetes mellitus with ketoacidosis without coma Status: Acute (2) COVID-19: Code(s): U07.1 - COVID-19 Status: Acute (3) UTI (urinary tract infection): Code(s): N39.0 - Urinary tract infection, site not specified Status: Acute DS: Summary Hospital Course Hospital Course: This is a 23-year-old female with past medical history of type 1 diabetes mom previous admissions for did he eat acidosis in the past presented with profound nausea vomiting. Sugar readings were above 600. She has been using her insulin pump she got over pneumonia several weeks ago her short course of antibiotics. In the EDC was tachypneic in mild respiratory distress with deep breathing tachycardic. Present 10.5 normal hemoglobin normal platelet count. ABG shows pCO2 7.2 bicarb 15 and compensated pH of 7.36. Of showed normal potassium anion gap elevated metabolic acidosis with anion gap of 22 and bicarb of 13 glucose was 535. Beta hydroxybutyrate was elevated at 7.51 urinalysis showed signs of UTI. Influenza RSV COVID swab came back positive for COVID. She received IV fluid resuscitation and was started on insulin drip and was admitted in the ICU. A1c came back at 11.5. 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 And has appointment with her next week. After DKA is resolved patient was transitioned to subcu the bolus insulin. With regard to COVID-19 she was asymptomatic no treatment was indicated. Chest x-ray with no acute pulmonary disease. She Remained on isolation the hospital stay. UTI was treated with Bactrim and will be finishing course at home.she will go back on her pump tonight. if pump does not work, also ordered lantus to use. dexcom ordered for continuous blood glucose montioring. Time Spent with Patient Time attestation: Total time spent providing and/or coordinating discharge services: Exam Narrative: General: well appearing, appears stated age. HEENT: normocephalic, atraumatic. Mucous membranes dry. EOMI, PERRLA Respiratory: clear to auscultation bilaterally. No rales/rhonic/wheezes. Cardiovascular: Regular rate and rhythm, normal S1-S2 upon auscultation. Abdomen: Soft, round, no pulsatile masses, nondistended and nontender. No rebound, no guarding. No CVA tenderness, no hepatosplenomegaly. Bowel sounds present to all four quadrants. No high pitch or tinkling sounds, resonant to percussion. Extremities: No cyanosis, clubbing, or edema present. Pulses are palpable 2/2. Active ROM to all four extremities. Neuro: Alert and orientated x 4. PERRLA. Cranial nerves 2-12 intact without focal deficit. Skin: Warm, dry, and intact, without rash, erythema, or lesion. Psych: pleasant, cooperative, normal speech, normal affect, no hallucinations, no dysarthia DS: Data Data Completed and Pending Labs on day of discharge: Labs from last 24 hours 03/24/24 03/24/24 03/24/24 11:16 08:05 05:42 WBC 6.0 RBC 3.90 L Hgb 11.6 L Hct 35.1 L MCV 90.0 MCH 29.7 MCHC 33.0 RDW 13.8 Plt Count 185 MPV 11.3 H Sodium 131 L Potassium 3.6 Chloride 102 Carbon Dioxide 26 Anion Gap 3 L BUN 13 Creatinine 0.54 L Estim Creat Clear Calc 118 Estimated GFR > 60 Glucose 286 H POC Capillary Glucose 306 H 268 H Calcium 8.1 L Magnesium 1.7 Total Bilirubin 0.8 AST 44 H ALT 26 Alkaline Phosphatase 80 Total Protein 6.0 L Albumin 3.2 L 03/23/24 03/23/24 20:10 16:42 WBC RBC Hgb Hct MCV MCH MCHC RDW Plt Count MPV Sodium Potassium Chloride Carbon Dioxide Anion Gap BUN Creatinine Estim Creat Clear Calc Estimated GFR Glucose POC Capillary Glucose 279 H 171 H Calcium Magnesium Total Bilirubin AST ALT Alkaline Phosphatase Total Protein Albumin Preliminary micro results at discharge 03/22/24 18:43 Blood Culture - Preliminary Blood 03/22/24 18:34 Blood Culture - Preliminary Blood Imaging Radiologist's impression: ITS Impressions Chest X-Ray 03/23/24 09:51 IMPRESSION: 1: NO ACUTE CARDIOPULMONARY DISEASE. Discharge Plan Discharge Attending physician on discharge: Rafa Guadarrama Consulting providers: Corona Prajapati Discharging Clinician: Rafa Guadarrama Anticipated Discharge Date/Time: 03/24/24 12:32 Patient Disposition: Home, Self-Care Activity: as tolerated Diet: diabetic Discharge Instructions: accucheck ac and check CGM ordered to get continous glucose monitor lantus if pump fails to work. continue novolog for prandial coverage place back on pump this evening and continue to monitor blood sugar Patient Instructions: Antibiotic Form, Basic Carbohydrate Counting (DC) Patient Language: Tajik Stand Alone Forms: General Discharge Information Follow-up/Referrals: UNKNOWN,DOCTOR [Primary Care Provider] - 1 Week Discharge Medications: New (DME) Dexcom G7 Sensor Device See Rx Instructions .Route Qty: 1 0RF Rx Instructions: As directed sulfamethoxazole-trimethoprim 800-160 mg Tablet 1 tab PO Q12HR Qty: 5 0RF insulin glargine [Lantus U-100 Insulin] 100 unit/mL solution 22 unit subcut QPM Qty: 10 0RF Rx Instructions: in case of pump failure Continued insulin aspart U-100 [Novolog PenFill U-100 Insulin] 100 unit/mL cartridge 1 sliding scale dose subcut USEASDIRECTD Patient Comments: Insulin Pump Date of admission: 03/22/24 16:50 Primary Care Provider: UNKNOWN,DOCTOR Admitting Provider: Guzman Leon Attending physician on admission: Guzman Leon Condition: Improved
== END 2024-03-24 14:20 | disposition home or self-care (01) | DRG 637 ==
LOC: ANHED 15:06 → ANHICU 17:19 → ANH3MEDSUR 03-23 09:53
PROVIDERS: Internal Medicine; Nurse Practitioner Gerontology; Student in an Organized Health Care Education/Training Program; Admitting Provider Internal Medicine; Emergency Provider Student in an Organized Health Care Education/Training Program; Visit Provider Internal Medicine
DX: E10.10 Type 1 diabetes mellitus with ketoacidosis without coma (principal); U07.1 COVID-19; N39.0 Urinary tract infection, site not specified; Z96.41 Presence of insulin pump (external) (internal)
CPT/HCPCS: 36415; 71045; 80048; 80053; 81001; 81025; 82010; 82803; 82948; 83036; 83735; 84100; 84132; 85025; 85027; 87040; 87086; 87637; 96361; 96365; 96375; 99285; A9270; J0613; J0696; J1650; J1815; J2405; J3480; J7030; J7120